=== PATIENT | female | born 1975 | race Caucasian/White ===

== ENCOUNTER → 2020-11-13 10:07 | Outpatient (CLI) | payer BC, SELFPAY ==
[2020-11-13 13:58] LABS: Free T3 2.9 pg/mL (2.18-3.98); T4 Free Direct 0.95 ng/dL (0.76-1.46); Thyroid Stim Hormone (TSH) 1.92 uIU/mL (0.358-3.74)
[2020-11-18 14:38] LABS: HPV APTIMA, High Risk Negative (Negative)
[2020-11-18 14:40] LABS: HPV Reflexed? YES, CHARGE PATIENT
== END ==
PROVIDERS: PCP Family Medicine; Visit Provider Student in an Organized Health Care Education/Training Program
DX: Z12.4 Encounter for screening for malignant neoplasm of cervix (principal); N92.6 Irregular menstruation, unspecified
CPT/HCPCS: 36415; 84439; 84443; 84481; 87624; 88175; G0145